=== PATIENT | male | born 1995 | race Caucasian/White ===

== ENCOUNTER 2018-09-14 10:15 | Observation (INO) | payer BC ==
[2018-09-14] MEDS ORDERED: IV RINGERS,LACTATED 1000ML 1,000 ML IV SCH ×2 (11:00→11:36)
[2018-09-14] MEDS ORDERED: ESOM20CA PO (11:08)
[2018-09-14] MEDS ORDERED: MORPHINE SULFATE 2 MG/ML VIAL. IV PRN (11:45)
[2018-09-14] MEDS ORDERED: LIDOCAINE 1% PF 2 ML VIAL. ID PRN (11:45)
[2018-09-14] MEDS ORDERED: ONDANSETRON PF 4 MG/2 ML VIAL. IV PRN (11:45)
[2018-09-14] MEDS ORDERED: HYDROmorphone 2 MG/ML VIAL IV PRN (11:45)
[2018-09-14] MEDS ORDERED: PROCHLORPERAZINE 10 MG/2 ML VIAL. IV PRN (11:45)
[2018-09-14] MEDS ORDERED: fentaNYL PF VIAL 100 MCG/2 ML VIAL IV PRN ×2 (11:45)
[2018-09-14] MEDS ORDERED: LIDOCAINE 2% PF 2ML VIAL. ONE (11:54)
[2018-09-14] MEDS ORDERED: EPINEPHrine 1 MG/ML VIAL ONE (11:54)
[2018-09-14] MEDS ORDERED: BUPIVACAINE 0.5% 50 ML VIAL. ONE ×2 (11:54→14:37)
[2018-09-14] MEDS ORDERED: MIDAZOLAM HCL/PF 2 MG/2 ML VIAL. ONE (11:54)
--- NOTE | 2018-09-14 12:24 | CONS ---
DATE OF CONSULTATION: 09/14/2018 This is an Emergency Department consultation from [facility]. HISTORY OF PRESENT ILLNESS: The patient is a 23-year-old male, [employer] employee that was coming in from the parking lot, slipped on some ice, fell on his right side and had immediate onset of arm pain with deformity on his right dominant arm. He denies any head injury, loss of consciousness, but obviously had deformity of the humerus. He was seen at [facility], noted to have a displaced humeral shaft fracture, was sent down to [facility] for more definitive treatment. He is actually in with his boss from [employer] confirming that this is a work-related injury. PAST MEDICAL HISTORY: Significant for only some seasonal allergies. He is on medication for such. PAST SURGICAL HISTORY: He denies any past surgical history. FAMILY HISTORY: Noncontributory. SOCIAL HISTORY: He is accompanied by his and small child, works at [employer] in [place], [place]. No smoking, alcohol, drug use involved. REVIEW OF SYSTEMS: Denies any loss of consciousness, chest pain, shortness of breath, radiating pain and the numbness, tingling in the upper extremities. He is able to walk with no problem. Denies any visual changes, headache, fever, chills or other injury. PHYSICAL EXAMINATION: VITAL SIGNS: Temperature 98.2, pulse 91, respirations 16, blood pressure 123/75, 98% saturation on room air. HEENT: Atraumatic, normocephalic. HEART: Regular rate and rhythm. LUNGS: Clear to auscultation bilaterally. ABDOMEN: Benign. EXTREMITIES: Examination of right upper extremity reveals obvious deformity of the right humerus. He can flex and extend his wrist, extend the fingers fully, grasp was limited secondary to pain, but distal pulses, sensation and motor function are intact to both upper extremities. He has normal examination of the contralateral shoulder, elbow and wrist. IMAGING: X-rays show a displaced fracture of the right humeral shaft. TREATMENT PLAN: I went over with him and his boss, given this is a work-related issue, nonoperative treatment options of hanging arm cast treatment, difficulties with that, treatment include that he has to basically sit up to keep the fracture position even essentially to sleep with the arm needs to be hung down and hung at an appropriate interval to keep alignment. He preferred to seek surgical treatment and I went over with him the possibility of infection, nerve or blood vessel damage, particularly radial nerve function, which involves extending the wrist and fingers since this is right in the area of the fracture itself. All his questions were answered. He wishes to proceed with surgical evaluation and treatment, which will occur today. I anticipate outpatient treatment with work restrictions to follow including fine motor use only. He can go back to work, likely starting Thursday of next week. No heavy pushing, pulling, lifting whatsoever with the right arm, but he may right on a tablet, type, sign a check, do fine motor manipulation such as eating, combing his hair and other tasks. MOY WARD MD DR: JADEN/christian JOB#: [id number] / [id number]
[2018-09-14] MEDS ORDERED: SEVOFLURANE 61 TO 120 MINUTES. IH ONE (12:59)
[2018-09-14] MEDS ORDERED: ONDANSETRON PF 4 MG/2 ML VIAL. ONE (12:59)
[2018-09-14] MEDS ORDERED: DEXAMETHASONE SOD PHOS 20 MG/5 ML VIAL. ONE (12:59)
[2018-09-14] MEDS ORDERED: PROPOFOL 20 ML IV ONE (12:59)
[2018-09-14] MEDS ORDERED: KETOROLAC 30 MG/ML INJ FOR OR. INJ ONE (12:59)
--- NOTE | 2018-09-14 15:17 | DISCH ---
DISCHARGE INSTRUCTIONS Condition on Discharge Condition on Discharge: Stable Activity After Discharge Activity Instructions for Disc: Other, see below (fine motor use of right hand only) Bathing Instructions: Shower-keep dressing dry Lifting Instructions after Dis: No heavy lifting, No pulling or pushing Wound Incision Care Wound/Incision Care: Ice to area for comfort, Change dressing (May remove dressing in 4 days if no drainage may then shower and pat dry) Community/Resources/Services Services at Discharge: PT EVALUATE & TREAT (I plan on him starting physical therapy following his follow-up visit appointment) Contacting the after DC Call your doctor for: Concerns you may have Follow-Up Follow up with: Antonette 1 week MOY WARD MD Sep 14, 2018 15:17
[2018-09-14] MEDS ORDERED: HYDR-3165 PO (15:23)
[2018-09-14 16:15] VITALS: BP 100/82
--- NOTE | 2018-09-14 19:41 | PDOC4 ---
Operative Note Operative Note Date surgery: 09/14/2018 Preoperative diagnosis: Displaced right humeral shaft fracture Postoperative diagnosis: Same Operative procedure: Operative reduction internal fixation right humeral shaft fracture Surgeon: Antonette Assist: Domenica Anesthesia: Gen. plus interscalene block Estimated blood loss: 25 mL Complications: None Operative indications: Giuseppe is a 23-year-old [employer] employee who is coming in to work and slipped on an icy patch in the parking lot falling and had the immediate onset of pain and deformity to his dominant right arm with a humerus fracture noted on presentation to [facility]. He was transferred to [place] for further evaluation and treatment and I went over with him the nonoperative and operative treatment options noted in the preoperative consult. We talked about the possibility associated with operative treatment of nerve or blood vessel damage particularly the radial nerve infection medical or other anesthetic complications among others the other difficulties associated with nonoperative treatment and a hanging arm cast or cast brace. All his questions were answered he wishes to proceed with operative evaluation and treatment. Operative text: Patient was identified procedure verified patient placed in the supine position on the operating table. After adequate amounts of general anesthesia were administered the right upper extremity was prepped and draped in standard sterile fashion and after timeout was performed patient procedure identified and verified and incision was made just lateral to the brachialis taking advantage of the anterior nervous plane lateral to the brachialis. Fracture was identified with subperiosteal dissection carried out only on the anterolateral aspect of the bone avoiding any retraction or stress on the radial nerve. Based 8 hole April locking plate was placed and after anatomic fracture reduction carried out bicortical fixation was carried out with excellent compression across the fracture site initially and additionally through the remaining holes of the plate all were secured with nonlocking screws and provided excellent fixation positioning verified under fluoroscopic guidance with multiple views. Thorough irrigation carried out normal saline solution subcutaneous closure with buried Vicryl suture subcuticular strata fix Monocryl sterile soft dressings were applied he was returned recovery room in stable condition having tolerated procedure well. He was given postoperative restrictions to find motor use only of the right hand MOY WARD MD Sep 14, 2018 19:41
== END 2018-09-14 17:38 | disposition home or self-care (01) ==
LOC: INTOOBSV 10:15 → OPSVCIP 10:15 → EDSTATUS 12:30
PROVIDERS: ADMIT Orthopaedic Surgery; ATTEND Orthopaedic Surgery
DX: S42.301A Unspecified fracture of shaft of humerus, right arm, initial encounter for closed fracture (principal); W00.0XXA Fall on same level due to ice and snow, initial encounter; Y99.0 Civilian activity done for income or pay; Y92.481 Parking lot as the place of occurrence of the external cause
CPT/HCPCS: 24515; 76000; C1713; G0378; G0379; J0171; J0690; J1100; J1885; J2001; J2250; J2405; J2704; J3490; J7120